=== PATIENT | female | born 1995 | race African-American/Black ===

== ENCOUNTER 2016-09-01 14:46 | Emergency (ER) | payer OTHER, BC ==
[~2016-09-01] VITALS: Ht 162.6 cm; Wt 47.7 kg
[2016-09-01 14:48] VITALS: BP 118/76; PULSE 96; RESP 20; TEMP 98.6; O2SAT 98
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
[2016-09-01] MEDS ORDERED: DIAZEPAM 5 MG TAB PO ONE (18:15)
[2016-09-01] MEDS ORDERED: IBUPROFEN 600 MG TAB PO ONE (18:15)
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
[2016-09-01] MEDS ORDERED: IBUP-232 PO (18:41)
== END 2016-09-01 19:05 | disposition home or self-care (01) ==
LOC: NEPD 14:46
DX: M54.2 Cervicalgia (principal); M54.5 Low back pain; V43.62XA Car passenger injured in collision with other type car in traffic accident, initial encounter
CPT/HCPCS: 72100; 72125; 84703; 99284; L0150

== ENCOUNTER 2017-07-25 12:19 | Emergency (ER) | payer BC ==
[~2017-07-25] VITALS: Ht 162.6 cm; Wt 42.0 kg
[~2017-07-25 12:19] MED LIST: IBUP-232 PO
[2017-07-25 12:22] VITALS: BP 100/62; PULSE 67; RESP 16; TEMP 98.6; O2SAT 100
[2017-07-25] MEDS ORDERED: FLUO1TAB3 PO (12:32)
--- NOTE | 2017-07-25 12:52 | PD ---
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 States it has been there approximately 2 months. Evaluated by [facility] PH[facility]IC[facility] and given a topical antibiotic which has not resulted in resolution. States it has gotten bigger and has become more painful. Denies any nausea vomiting diarrhea or fever. Denies . She is sexually active. One partner without condoms. Denies any history of STD. Denies . Pain is dull and constant 5 out of 10 aggravated with movement relieved with rest. States she has not attempted warm compress. PFSH Past Medical History Depression: Yes Diminished Hearing: No Immunizations Current: Yes Influenza Vaccination: No ?: Not : 0 Social History Alcohol Use: No Tobacco Use: No Substance Use: No Allergies-Medications (Allergen,Severity, Reaction): Coded Allergies: No Known Allergies (Unverified Adverse Reaction, Unknown, 07/25/17) Reported Meds & Prescriptions Reported Meds & Active Scripts Active Hydrocodone-Acetaminophen 5-325 mg Tab 1 Tab PO Q6H PRN Bactrim DS (Sulfamethoxazole-Trimethoprim) 800-160 Mg Tab 1 Tab PO BID Reported Fluoxetine (Fluoxetine HCl) 20 Mg Tab 20 Mg PO DAILY Review of Systems General / Constitutional: No: Fever Eyes: No: Visual changes HENT: No: Headaches Cardiovascular: No: Chest Pain or Discomfort Respiratory: No: Shortness of Breath Gastrointestinal: No: Abdominal Pain Genitourinary: Positive: Pelvic Pain, No: Dysuria Musculoskeletal: No: Pain Skin: No Rash Neurologic: No: Weakness Psychiatric: No: Depression Endocrine: No: Polydipsia Hematologic/Lymphatic: No: Easy Bruising Physical Exam Narrative GENERAL: Well-nourished, well-developed patient. SKIN: Focused skin assessment warm/dry. HEAD: Normocephalic. EYES: No scleral icterus. No injection or drainage. NECK: Supple, trachea midline. No JVD or lymphadenopathy. CARDIOVASCULAR: Regular rate and rhythm without murmurs, gallops, or rubs. RESPIRATORY: Breath sounds equal bilaterally. No accessory muscle use. GASTROINTESTINAL: Abdomen soft, non-tender, nondistended. MUSCULOSKELETAL: No cyanosis, or edema. BACK: Nontender without obvious deformity. No CVA tenderness. Right labial Bartholin's cyst measuring approximately 6 x 4 cm without drainage , fluctuant Data Data Last Documented VS Vital Signs Date Time Temp Pulse Resp B/P (MAP) Pulse Ox O2 Delivery O2 Flow Rate FiO2 07/25/17 13:33 07/25/17 12:22 98.6 67 16 100 Room Air Orders Orders Ed Discharge Order (07/25/17 13:36) MDM Medical Decision Making Medical Screen Exam Complete: Yes Emergency Medical Condition: Yes Differential Diagnosis Labial abscess, labial malignancy, Bartholin's cyst Narrative Course Assessment plan discussed with patient and boyfriend at bedside. Procedures Procedure Narrative After the risks and benefits were discussed the following procedure was performed: INCISION AND DRAINAGE OF CYST: The area was prepped and was sterilely draped. Skin was anesthetized with ethyl chloride. A number 11 blade scalpel was used to make a 0.5 -cm incision across the area of the cyst. There was not significant drainage. The cyst wall was not pierced. Procedure stopped. Bleeding controlled with mini pad. Diagnosis Primary Impression: Bartholin cyst Patient Instructions: General Instructions Additional Instructions: Encouraged a warm compress and sitz bath. Encourage follow-up with [facility]IC[facility]. Return to the emergency room with any onset of new symptoms. Med/Other Pt SpecificInfo: Prescription(s) given Scripts Hydrocodone-Acetaminophen (Hydrocodone-Acetaminophen) 5-325 mg Tab 1 TAB PO Q6H Y for PAIN, #15 TAB 0 Refills Prov: Amari Schmidt MD 07/25/17 Sulfamethoxazole-Trimethoprim (Bactrim DS) 800-160 Mg Tab 1 TAB PO BID for Infection, #20 TAB 0 Refills Prov: Amari Schmidt MD 07/25/17 Disposition: 01 DISCHARGE HOME Condition: Good Amari Schmidt MD July 25, 2017 12:52
[2017-07-25] MEDS ORDERED: BACT800T5 PO (13:16)
[2017-07-25] MEDS ORDERED: HYDR-3516 PO (13:16)
== END 2017-07-25 13:40 | disposition home or self-care (01) ==
LOC: PHED 12:19
DX: N75.0 Cyst of Bartholin's gland (principal)
CPT/HCPCS: 56420

== ENCOUNTER 2017-07-26 23:12 | Emergency (ER) | payer BC ==
[~2017-07-26] VITALS: Ht 162.6 cm; Wt 42.5 kg
[~2017-07-26 23:12] MED LIST changes: +BACT800T5 PO; +FLUO1TAB3 PO; +HYDR-3516 PO; -IBUP-232 PO
[2017-07-26 23:14] VITALS: BP 113/66; PULSE 98; RESP 16; TEMP 99.7; O2SAT 98
[2017-07-26 23:33] LABS: BILIRUBIN, URINE NEG (NEG); BLOOD, URINE NEG (NEG); GLUCOSE,URINE NEG (NEG); KETONE, URINE 40 mg/dL (NEG); NITRITE,URINE NEG (NEG); PH, URINE 7.5 (5.0-8.5); URINE COLOR YELLOW (YELLW/STRAW); URINE LEUKOCYTE ESTERASE TRACE (NEG)
[2017-07-26 23:41] LABS: BACTERIA, URINE FEW /hpf; RBC, URINE 0-3 /hpf (0-3); SQUAMOUS EPITHELIAL CELL URINE > 8 /hpf (0-5)
[2017-07-27] MEDS ORDERED: SODIUM CHLOR 0.9% 1000 ML INJ 1,000 ML IV ONE (01:08)
[2017-07-27] MEDS ORDERED: ONDANSETRON HCL 4 MG/2 ML VIAL IV PUSH ONE (01:15)
[2017-07-27] MEDS ORDERED: PANTOPRAZOLE SODIUM 40 MG VIAL IV PUSH ONE (01:15)
[2017-07-27] MEDS ORDERED: KETOROLAC TROMETHAMINE 30 MG/ML (IVP) VIAL IV PUSH ONE (01:15)
[2017-07-27 01:31] VITALS: PULSE 82; RESP 16; O2SAT 98
[2017-07-27 01:32] LABS: AUTOMATED NEUTROPHIL # 6.5 TH/MM3 (1.8-7.7); BASOPHIL # 0.2 TH/MM3 (0-0.2); BASOPHIL % 2.7 % (0.0-2.0); EOSINOPHIL # 0.2 TH/MM3 (0-0.4); EOSINOPHIL % 2.6 % (0.0-4.0); HEMATOCRIT 33.7 % (35.0-46.0); HEMOGLOBIN 11.4 GM/DL (11.6-15.3); LYMPHOCYTE # 0.5 TH/MM3 (1.0-4.8); MEAN CORPUSCULAR HEMOGLOBIN 28.1 PG (27.0-34.0); MEAN CORPUSCULAR HGB CONC 33.8 % (32.0-36.0); MEAN PLATELET VOLUME 8.3 FL (7.0-11.0); MONO % 6.5 % (0.0-8.0); MONOCYTE # 0.5 TH/MM3 (0-0.9); NEUT % 82.2 % (16.0-70.0); PLATELET COUNT 277 TH/MM3 (150-450); RED BLOOD COUNT 4.05 MIL/MM3 (4.00-5.30); RED CELL DISTRIBUTION WIDTH 13.1 % (11.6-17.2); WHITE BLOOD COUNT 7.9 TH/MM3 (4.0-11.0)
[2017-07-27 01:40] LABS: CALCIUM 9.3 MG/DL (8.5-10.1)
[2017-07-27 01:41] LABS: BICARBONATE 24.7 MEQ/L (21.0-32.0)
[2017-07-27 01:44] LABS: CREATININE 0.94 MG/DL (0.50-1.00)
[2017-07-27 02:21] VITALS: PULSE 95; RESP 16; O2SAT 100
[2017-07-27] MEDS ORDERED: ZOFR4TAB3 SL (02:47)
[2017-07-27 02:48] VITALS: BP 104/62
--- NOTE | 2017-07-27 02:58 | PD ---
HPI Chief Complaint: GI Complaint Time Seen by Provider: 01:08 Travel History International Travel<30 days: No Contact w/Intl Traveler<30days: No Traveled to known affect area: No History of Present Illness HPI 21-year-old female presents to the emergency department by private transportation the care of her significant other for evaluation of headache myalgias arthralgias generalized weakness and nausea vomiting after taking pain medication. Patient was prescribed hydrocodone for pain related to soft tissue swelling to the right labia with history of Bartholin's gland cyst. Patient also given prescription for antibiotic which she has tolerated well. Patient reports headache after vomiting and mild sore throat sore throat is resolving without any further vomiting. Patient has had poor oral intake. Patient denies any abdominal pain. Patient had some dysuria. Patient denies vaginal discharge or vaginal bleeding. Patient had no injury. 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 Patient denies other concerns or complaints. PFSH Past Medical History Narrative Medical Depression dental extraction; no tobacco use no alcohol use no substance use; nursing notes reviewed Depression: Yes Diminished Hearing: No Immunizations Current: Yes Tetanus Vaccination: > 5 Years Influenza Vaccination: No ?: Not LMP: 06/21/2017 : 0 Past Surgical History Oral Surgery: Yes (WISDOM TEETH) Social History Alcohol Use: No Tobacco Use: No Substance Use: No Allergies-Medications (Allergen,Severity, Reaction): Coded Allergies: No Known Allergies (Unverified Adverse Reaction, Unknown, 07/26/17) Reported Meds & Prescriptions Reported Meds & Active Scripts Active Hydrocodone-Acetaminophen 5-325 mg Tab 1 Tab PO Q6H PRN Bactrim DS (Sulfamethoxazole-Trimethoprim) 800-160 Mg Tab 1 Tab PO BID Reported Fluoxetine (Fluoxetine HCl) 20 Mg Tab 20 Mg PO DAILY Review of Systems Except as stated in HPI: all other systems reviewed are Neg Physical Exam Narrative GENERAL: Well-developed well-nourished female in no acute distress no respiratory distress SKIN: Warm and dry. HEAD: Normocephalic. EYES: No scleral icterus. No injection or drainage. NECK: Supple, trachea midline. No JVD or lymphadenopathy. CARDIOVASCULAR: Regular rate and rhythm without murmurs, gallops, or rubs. RESPIRATORY: Breath sounds equal bilaterally. No accessory muscle use. GASTROINTESTINAL: Abdomen soft, non-tender, nondistended. : right labial soft tissue swelling with 1 cm laceration consistent with I&D attempt from yesterday- -no purulent drainage no induration site is not firm or tense. MUSCULOSKELETAL: No cyanosis, or edema. BACK: Nontender without obvious deformity. No CVA tenderness. Data Data Last Documented VS Vital Signs Date Time Temp Pulse Resp B/P (MAP) Pulse Ox O2 Delivery O2 Flow Rate FiO2 07/27/17 02:21 95 16 100 Room Air 07/26/17 23:14 99.7 113/66 (82) Orders Orders Urinalysis - C+S If Indicated (07/26/17 23:20) Ed Urine Pregnancytest Poc (07/26/17 23:20) Complete Blood Count With Diff (07/27/17 01:08) Basic Metabolic Panel (Bmp) (07/27/17 01:08) Sodium Chlor 0.9% 1000 Ml Inj (Ns 1000 M (07/27/17 01:08) Ondansetron Inj (Zofran Inj) (07/27/17 01:15) Pantoprazole Inj (Protonix Inj) (07/27/17 01:15) Ketorolac Inj (Toradol Inj) (07/27/17 01:15) Ed Discharge Order (07/27/17 02:30) Labs Laboratory Tests Test 07/26/17 23:25 07/27/17 01:00 Urine Color YELLOW Urine Turbidity CLOUDY Urine pH 7.5 Urine Specific [place] 1.020 Urine Protein 100 mg/dL Urine Glucose (UA) NEG mg/dL Urine Ketones 40 mg/dL Urine Occult Blood NEG Urine Nitrite NEG Urine Bilirubin NEG Urine Urobilinogen 2.0 MG/DL Urine Leukocyte Esterase TRACE Urine RBC 0-3 /hpf Urine WBC 6-8 /hpf Urine Squamous Epithelial Cells > 8 /hpf Urine Bacteria FEW /hpf Microscopic Urinalysis Comment CULT NOT INDICATED White Blood Count 7.9 TH/MM3 Red Blood Count 4.05 MIL/MM3 Hemoglobin 11.4 GM/DL Hematocrit 33.7 % Mean Corpuscular Volume 83.0 FL Mean Corpuscular Hemoglobin 28.1 PG Mean Corpuscular Hemoglobin Concent 33.8 % Red Cell Distribution Width 13.1 % Platelet Count 277 TH/MM3 Mean Platelet Volume 8.3 FL Neutrophils (%) (Auto) 82.2 % Lymphocytes (%) (Auto) 6.0 % Monocytes (%) (Auto) 6.5 % Eosinophils (%) (Auto) 2.6 % Basophils (%) (Auto) 2.7 % Neutrophils # (Auto) 6.5 TH/MM3 Lymphocytes # (Auto) 0.5 TH/MM3 Monocytes # (Auto) 0.5 TH/MM3 Eosinophils # (Auto) 0.2 TH/MM3 Basophils # (Auto) 0.2 TH/MM3 CBC Comment DIFF FINAL Differential Comment Blood Urea Nitrogen 14 MG/DL Creatinine 0.94 MG/DL Random Glucose 83 MG/DL Calcium Level 9.3 MG/DL Sodium Level 138 MEQ/L Potassium Level 4.0 MEQ/L Chloride Level 107 MEQ/L Carbon Dioxide Level 24.7 MEQ/L Anion Gap 6 MEQ/L Estimat Glomerular Filtration Rate 92 ML/MIN MDM Medical Decision Making Medical Screen Exam Complete: Yes Emergency Medical Condition: Yes Medical Record Reviewed: Yes Differential Diagnosis Adverse medication reaction, UTI, viral syndrome, dehydration, electrolyte disturbance, mass, abscess Narrative Course Patient notes vomiting after attempting to take pain medication able to tolerate medication as sensitive to narcotics. Patient with poor oral intake after taking pain medication. 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 Patient apparently developed nausea vomiting with narcotic medication but not allergic to this medication given prescription for Zofran to help tolerate side effects of narcotic medication and encouraged to take half dose. Diagnosis Primary Impression: Adverse effects of medication Referrals: Primary Care Physician 3 days Patient Instructions: General Instructions Additional Instructions: Increase fluid hydration Follow clear liquid diet for next 12-24 hours advance diet as tolerated bland/ brat diet and regular diet avoiding fried and fatty foods Take Zofran as prescribed as needed for nausea and/or vomiting Complete course of antibiotic as prescribed Follow-up with your primary care provider as scheduled and call for appointment with BRAIDER SETTER as previously instructed Take as tolerated ibuprofen/Advil/Motrin 400 mg as often as every 6 hours for pain associated inflammation or for fever 100.4F or greater May take acetaminophen/Tylenol every 4-6 hours as needed for fever 100.4F or greater Return to the emergency department for any concerns or change in condition Med/Other Pt SpecificInfo: Prescription(s) given Scripts Ondansetron Odt (Zofran Odt) 4 Mg Tab 4 MG SL Q6HR Y for Nausea/Vomiting, #10 TAB 0 Refills Prov: Joy Freire MD 07/27/17 Disposition: DISCHARGE HOME Condition: Stable Joy Freire MD July 27, 2017 02:58
== END 2017-07-27 03:12 | disposition home or self-care (01) ==
LOC: PHED 23:12
DX: R51 Headache (principal); T40.2X5A Adverse effect of other opioids, initial encounter; J02.9 Acute pharyngitis, unspecified
CPT/HCPCS: 80048; 81001; 84703; 85025; 96361; 96374; 96375; 99284; C9113; J1885; J2405; J7030

== ENCOUNTER 2017-08-07 12:07 | Emergency (ER) | payer BC ==
[~2017-08-07] VITALS: Ht 162.6 cm; Wt 42.0 kg
[~2017-08-07 12:07] MED LIST changes: +ZOFR4TAB3 SL
[2017-08-07 12:11] VITALS: BP 98/56; PULSE 90; RESP 16; TEMP 98.7; O2SAT 98
--- NOTE | 2017-08-07 12:53 | PD ---
HPI Chief Complaint: GI Complaint Time Seen by Provider: 12:52 Travel History International Travel<30 days: No Contact w/Intl Traveler<30days: No Traveled to known affect area: No History of Present Illness HPI Patient comes in complaining of having left sided abdominal pain, cramping nature, intermittent, 5 out of 10, relieved with bowel movement. However she noted that her bowel movement was well formed not watery but had some red streaks around edges of it. Also denies being on any anticoagulants, and also states she did not strain nor feel any sharp rectal pain while she was having a BM... Patient denies any associated nausea, vomiting, chest pain, back pain, flank pain, hematuria/urgency/frequency/dysuria, cough/sore throat/runny nose Follows up with Dr. Dowd Patient denies any drug allergies Past medical history significant only for wisdom teeth surgery and right foot orthopedic surgery, patient has a history of anorexia, depression, anemia, Last menstrual period July 30, 2017, PFSH Past Medical History Depression: Yes Diminished Hearing: No Immunizations Current: Yes ?: Not LMP: 07/30/17 : 0 Past Surgical History Oral Surgery: Yes (WISDOM TEETH) Social History Alcohol Use: No Tobacco Use: No Substance Use: No Allergies-Medications (Allergen,Severity, Reaction): Coded Allergies: No Known Allergies (Unverified Adverse Reaction, Unknown, 08/07/17) Reported Meds & Prescriptions Reported Meds & Active Scripts Active Zofran Odt (Ondansetron Odt) 4 Mg Tab 4 Mg SL Q6HR PRN Hydrocodone-Acetaminophen 5-325 mg Tab 1 Tab PO Q6H PRN Bactrim DS (Sulfamethoxazole-Trimethoprim) 800-160 Mg Tab 1 Tab PO BID Reported Fluoxetine (Fluoxetine HCl) 20 Mg Tab 20 Mg PO DAILY Review of Systems General / Constitutional: No: Fever Eyes: No: Visual changes HENT: No: Headaches Cardiovascular: No: Chest Pain or Discomfort Respiratory: No: Shortness of Breath Gastrointestinal: Positive: Abdominal Pain, Hematochezia Genitourinary: No: Dysuria Musculoskeletal: No: Pain Skin: No Rash Neurologic: No: Weakness Psychiatric: No: Depression Endocrine: No: Polydipsia Hematologic/Lymphatic: No: Easy Bruising Physical Exam Narrative GENERAL: SKIN: Warm and dry. HEAD: Atraumatic. Normocephalic. EYES: Pupils equal and round. No scleral icterus. No injection or drainage. ENT: No nasal bleeding or discharge. Mucous membranes pink and moist. NECK: Trachea midline. No JVD. CARDIOVASCULAR: Regular rate and rhythm. RESPIRATORY: No accessory muscle use. Clear to auscultation. Breath sounds equal bilaterally. GASTROINTESTINAL: Abdomen soft, non-tender, nondistended. RN at bedside during examination did not reveal any evidence of any external hemorrhoids nor any anal fissure MUSCULOSKELETAL: Extremities without clubbing, cyanosis, or edema. No obvious deformities. NEUROLOGICAL: Awake and alert. No obvious cranial nerve deficits. Motor grossly within normal limits. Five out of 5 muscle strength in the arms and legs. Normal speech. PSYCHIATRIC: Appropriate mood and affect; insight and judgment normal. Data Data Last Documented VS Vital Signs Date Time Temp Pulse Resp B/P (MAP) Pulse Ox O2 Delivery O2 Flow Rate FiO2 08/07/17 14:06 98 08/07/17 12:11 98.7 90 16 98/56 (70) Orders Orders Urinalysis - C+S If Indicated (08/07/17 12:12) Ed Urine Pregnancytest Poc (08/07/17 12:12) Ct Abd/Pel W Iv Contrast(Rout) (08/07/17 13:40) Complete Blood Count With Diff (08/07/17 13:41) Comprehensive Metabolic Panel (08/07/17 13:41) Lipase (08/07/17 13:41) Iv Access Insert/Monitor (08/07/17 13:41) Ecg Monitoring (08/07/17 13:41) Oximetry (08/07/17 13:41) NPO (08/07/17 13:41) Sodium Chloride 0.9% Flush (Ns Flush) (08/07/17 13:45) Labs Laboratory Tests Test 08/07/17 13:47 08/07/17 13:57 Urine Collection Type CLEAN CATCH Urine Color YELLOW Urine Turbidity CLEAR Urine pH 6.0 Urine Specific [place] 1.015 Urine Protein 30 mg/dL Urine Glucose (UA) NEG mg/dL Urine Ketones TRACE mg/dL Urine Occult Blood NEG Urine Nitrite NEG Urine Bilirubin NEG Urine Urobilinogen 0.2 MG/DL Urine Leukocyte Esterase NEG Urine RBC 0-3 /hpf Urine WBC 3-5 /hpf Urine Squamous Epithelial Cells > 8 /hpf Urine Renal Epithelial Cells /hpf Urine Mucus FEW /lpf Microscopic Urinalysis Comment CULT NOT INDICATED White Blood Count 5.9 TH/MM3 Red Blood Count 4.21 MIL/MM3 Hemoglobin 11.7 GM/DL Hematocrit 34.3 % Mean Corpuscular Volume 81.5 FL Mean Corpuscular Hemoglobin 27.8 PG Mean Corpuscular Hemoglobin Concent 34.1 % Red Cell Distribution Width 13.4 % Platelet Count 450 TH/MM3 Mean Platelet Volume 8.7 FL CBC Comment AUTO DIFF Blood Urea Nitrogen 13 MG/DL Creatinine 0.84 MG/DL Random Glucose 71 MG/DL Total Protein 7.4 GM/DL Albumin 3.9 GM/DL Calcium Level 9.2 MG/DL Alkaline Phosphatase 58 U/L Aspartate Amino Transf (AST/SGOT) 20 U/L Alanine Aminotransferase (ALT/SGPT) 17 U/L Total Bilirubin 0.3 MG/DL Sodium Level 142 MEQ/L Potassium Level 3.8 MEQ/L Chloride Level 109 MEQ/L Carbon Dioxide Level 26.0 MEQ/L Anion Gap 7 MEQ/L Estimat Glomerular Filtration Rate 105 ML/MIN Lipase 69 U/L [facility] Medical Decision Making Medical Screen Exam Complete: Yes Emergency Medical Condition: Yes Medical Record Reviewed: Yes Differential Diagnosis Anal fissure versus external hemorrhoid versus internal hemorrhoid versus colitis versus diverticulitis Narrative Course No leukocytosis, no anemia, no left shift UA is consistent with contaminated sample, without any evidence for UTI Electrolytes are all within normal limits, normal kidney liver and pancreatic functions. Currently patient is signed out pending CAT scan result. Diagnosis Primary Impression: Bright red blood per rectum Disposition: DISCHARGE HOME Condition: Stable Silvio John MD Aug 07, 2017 12:53
[2017-08-07] MEDS ORDERED: SODIUM CHLORIDE 0.9% FLUSH 10 ML FLUSH IV FLUSH PRN (13:45)
[2017-08-07 14:06] VITALS: O2SAT 98
[2017-08-07 14:08] LABS: BILIRUBIN, URINE NEG (NEG); BLOOD, URINE NEG (NEG); GLUCOSE,URINE NEG (NEG); KETONE, URINE TRACE mg/dL (NEG); NITRITE,URINE NEG (NEG); URINE COLOR YELLOW (YELLW/STRAW); URINE LEUKOCYTE ESTERASE NEG (NEG)
[2017-08-07 14:16] LABS: MUCUS URINE FEW /lpf (OCC)
[2017-08-07 14:17] LABS: CHLORIDE 109 MEQ/L (98-107); HEMATOCRIT 34.3 % (35.0-46.0); HEMOGLOBIN 11.7 GM/DL (11.6-15.3); MEAN CELL VOLUME 81.5 FL (80.0-100.0); MEAN CORPUSCULAR HEMOGLOBIN 27.8 PG (27.0-34.0); MEAN CORPUSCULAR HGB CONC 34.1 % (32.0-36.0); MEAN PLATELET VOLUME 8.7 FL (7.0-11.0); PLATELET COUNT 450 TH/MM3 (150-450); RED BLOOD COUNT 4.21 MIL/MM3 (4.00-5.30); RED CELL DISTRIBUTION WIDTH 13.4 % (11.6-17.2); SODIUM (NA) 142 MEQ/L (136-145); WHITE BLOOD COUNT 5.9 TH/MM3 (4.0-11.0)
[2017-08-07 14:17] LABS: RBC, URINE 0-3 /hpf (0-3); SQUAMOUS EPITHELIAL CELL URINE > 8 /hpf (0-5)
[2017-08-07 14:20] LABS: CALCIUM 9.2 MG/DL (8.5-10.1)
[2017-08-07 14:21] LABS: ALBUMIN 3.9 GM/DL (3.4-5.0); BLOOD UREA NITROGEN 13 MG/DL (7-18); GLUCOSE,RANDOM 71 MG/DL (74-106)
[2017-08-07 14:24] LABS: ALT (GPT) 17 U/L (9-42); AST (GOT) 20 U/L (16-38); CREATININE 0.84 MG/DL (0.50-1.00); GLOMERULAR FILTRATION RATE 105 ML/MIN (>89)
[2017-08-07 14:25] LABS: TOTAL BILIRUBIN ADULT 0.3 MG/DL (0.2-1.0); TOTAL PROTEIN 7.4 GM/DL (6.4-8.2)
[2017-08-07 14:27] LABS: ALKALINE PHOSPHATASE 58 U/L (45-117)
[2017-08-07 14:44] LABS: LYMPHOCYTES 40 % (9-44); MONOCYTES 7 % (0-8); NEUTROPHIL # MANUAL DIFF 3.1 TH/MM3 (1.8-7.7); POLYS (SEG NEUTROPHILS) 53 % (16-70)
[2017-08-07] MEDS ORDERED: IOHEXOL 350 MG/ML 10 ML VIAL (for RAD DIAG) IVCONTRAST ONE (15:17)
--- NOTE | 2017-08-07 15:29 | RADRPT ---
EXAM DATE: 08/07/2017 3:18 PM EDT AGE/SEX: 21 years / Female INDICATIONS: Left lower quadrant pain. Bloody stool. CLINICAL DATA: This is the patient's initial encounter. Patient reports that signs and symptoms have been present for 1 day and indicates a pain score of 5/10. MEDICAL/SURGICAL HISTORY: None. None. ORAL CONTRAST: No oral contrast ingested. RADIATION DOSE: 4.45 CTDI (mGy) COMPARISON: No prior [place] exams available for comparison. TECHNIQUE: Multiple contiguous axial images were obtained through the abdomen and pelvis following b olus infusion of 75 ml Omnipaque 350 (iohexol) nonionic water-soluble contrast as a single exam dos e. No oral contrast ingested. Using automated exposure control and adjustment of the mA and/or kV ac cording to patient size, the radiation dose was kept as low as reasonably achievable to obtain optima l diagnostic quality images. FINDINGS: Lower Lungs: The visualized lower lungs are clear. Liver: The liver has a homogeneous density without space-occupying lesion. There is no dilation of th e biliary tree. Spleen: Homogeneous density without enlargement. Pancreas: Unremarkable without mass or calcification. Kidneys: Normal in size and shape. No evidence of mass or hydronephrosis. Adrenal Glands: Unremarkable. Aorta: The aorta and proximal iliac vessels are grossly unremarkable without aneurysmal dilation. Bowel/Mesentery: No oral contrast was given limiting the sensitivity of examination. There is poor de lineation of the bowel loops with minimal mesenteric fat resulting in suboptimal visualization. There are multiple loops of nondilated air-containing small bowel. Gas and stool is noted segmental colon. There is no evidence of free air Abdominal Wall: Intact. Retroperitoneum: No evidence of adenopathy in the retrocrural, para-aortic, or deep pelvic regions. Bladder: Contours are smooth. Reproductive Organs: No abnormal masses or calcifications seen. Inguinal: The inguinal region is unremarkable without evidence of adenopathy. Bony Structures: Unremarkable. CONCLUSION: 1. Nonobstructive bowel gas pattern. No oral contrast was given limiting the sensitivity. There is p oor delineation of the bowel loops with minimal mesenteric fat resulting in suboptimal visualization. 2. The remainder of the study is unremarkable. Electronically signed by: Hakeem Melendez MD 08/07/2017 3:27 PM EDT
[2017-08-07 15:47] VITALS: BP 97/66; PULSE 71; RESP 16; O2SAT 100
--- NOTE | 2017-08-07 15:47 | PD ---
Data Data Last Documented VS Vital Signs Date Time Temp Pulse Resp B/P (MAP) Pulse Ox O2 Delivery O2 Flow Rate FiO2 08/07/17 16:31 08/07/17 15:47 71 16 100 Room Air 08/07/17 12:11 98.7 Orders Orders Urinalysis - C+S If Indicated (08/07/17 12:12) Ed Urine Pregnancytest Poc (08/07/17 12:12) Ct Abd/Pel W Iv Contrast(Rout) (08/07/17 13:40) Complete Blood Count With Diff (08/07/17 13:41) Comprehensive Metabolic Panel (08/07/17 13:41) Lipase (08/07/17 13:41) Iv Access Insert/Monitor (08/07/17 13:41) Ecg Monitoring (08/07/17 13:41) Oximetry (08/07/17 13:41) NPO (08/07/17 13:41) Sodium Chloride 0.9% Flush (Ns Flush) (08/07/17 13:45) Iohexol 350 Inj (Omnipaque 350 Inj) (08/07/17 15:17) Ed Discharge Order (08/07/17 16:05) Labs Laboratory Tests Test 08/07/17 13:47 08/07/17 13:57 Urine Collection Type CLEAN CATCH Urine Color YELLOW Urine Turbidity CLEAR Urine pH 6.0 Urine Specific [place] 1.015 Urine Protein 30 mg/dL Urine Glucose (UA) NEG mg/dL Urine Ketones TRACE mg/dL Urine Occult Blood NEG Urine Nitrite NEG Urine Bilirubin NEG Urine Urobilinogen 0.2 MG/DL Urine Leukocyte Esterase NEG Urine RBC 0-3 /hpf Urine WBC 3-5 /hpf Urine Squamous Epithelial Cells > 8 /hpf Urine Renal Epithelial Cells /hpf Urine Mucus FEW /lpf Microscopic Urinalysis Comment CULT NOT INDICATED White Blood Count 5.9 TH/MM3 Red Blood Count 4.21 MIL/MM3 Hemoglobin 11.7 GM/DL Hematocrit 34.3 % Mean Corpuscular Volume 81.5 FL Mean Corpuscular Hemoglobin 27.8 PG Mean Corpuscular Hemoglobin Concent 34.1 % Red Cell Distribution Width 13.4 % Platelet Count 450 TH/MM3 Mean Platelet Volume 8.7 FL CBC Comment AUTO DIFF Differential Total Cells Counted 100 Neutrophils % (Manual) 53 % Lymphocytes % 40 % Monocytes % 7 % Neutrophils # (Manual) 3.1 TH/MM3 Differential Comment FINAL DIFF MANUAL Platelet Estimate NORMAL Platelet Morphology Comment NORMAL Blood Urea Nitrogen 13 MG/DL Creatinine 0.84 MG/DL Random Glucose 71 MG/DL Total Protein 7.4 GM/DL Albumin 3.9 GM/DL Calcium Level 9.2 MG/DL Alkaline Phosphatase 58 U/L Aspartate Amino Transf (AST/SGOT) 20 U/L Alanine Aminotransferase (ALT/SGPT) 17 U/L Total Bilirubin 0.3 MG/DL Sodium Level 142 MEQ/L Potassium Level 3.8 MEQ/L Chloride Level 109 MEQ/L Carbon Dioxide Level 26.0 MEQ/L Anion Gap 7 MEQ/L Estimat Glomerular Filtration Rate 105 ML/MIN Lipase 69 U/L MDM Supervised Visit with MULU: No Narrative Course Patient CARE assume from Dr. John at 1500, this is a 21-year-old female otherwise healthy, she appears well. Abdomen benign. CT abdomen unremarkable, Last 24 hours Impressions Abdomen/Pelvis CT 08/07/17 1340 Signed Impressions: CONCLUSION: 1. Nonobstructive bowel gas pattern. No oral contrast was given limiting the s ensitivity. There is poor delineation of the bowel loops with minimal mesenteri c fat resulting in suboptimal visualization. 2. The remainder of the study is unremarkable. Patient's hemoglobin is actually better than a few weeks ago and was tested here , she appears well in obvious distress, discussed possible constipation as a cause of her blood streaking in her formed stool [employer] MiraLAX, follow-up with the transport truck driver or primary care physician discuss return to ED criteria. She is stable for discharge is no indication further workup this patient at this time Diagnosis Primary Impression: Bright red blood per rectum Referrals: Randi Granda MD Additional Instruction: miralax, 1 capful mixed with juice or water daily fpt one week. Disposition: 01 DISCHARGE HOME Condition: Stable Viktor Aguilera MD Aug 07, 2017 15:47
== END 2017-08-07 16:32 | disposition home or self-care (01) ==
LOC: PHED 12:07
DX: K92.1 Melena (principal); R10.32 Left lower quadrant pain; F32.9 Major depressive disorder, single episode, unspecified
CPT/HCPCS: 74177; 80053; 81001; 83690; 84703; 85007; 85027; 99284; Q9967

== ENCOUNTER → 2017-08-11 | Day surgery (SDC) | payer BC ==
--- NOTE | 2017-08-10 09:33 | MH ---
cc: Junior Dolan MD DATE OF ADMISSION: 08/11/2017 REASON FOR ADMISSION: This patient is being admitted for marsupialization of Bartholin abscess. HISTORY OF PRESENT ILLNESS: This patient is a 21-year-old black female. She is 0. She is being admitted to [facility] for marsupialization of Bartholin abscess. The patient was recently seen in the office. 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 We discussed the different modes of therapy, which included marsupialization. PAST MEDICAL HISTORY: Significant for mild depressive disorder, presently on Fluoxetine. SOCIAL HISTORY: She is a nonsmoker, nondrinker. ALLERGIES: SHE HAS NO KNOWN ALLERGIES TO MEDICATION. PAST SURGICAL HISTORY: Noncontributory. REVIEW OF SYSTEMS: Noncontributory. PHYSICAL EXAMINATION: GENERAL: The patient was seen well-developed, well-nourished, no acute distress. VITAL SIGNS: Stable. HEENT: Negative. CHEST: Clear to auscultation. CARDIOVASCULAR: Revealed regular rate. ABDOMEN: Soft. Bowel sounds are positive. PELVIC: External genitalia reveals a large Bartholin abscess, which had distorted the normal anatomy significantly. The uterus is normal size. There was no adnexal masses. EXTREMITIES: No cyanosis, clubbing or edema. NEUROPSYCHIATRIC: Oriented x 3. No gross neurocranial deficit. IMPRESSION ON ADMISSION: Large Bartholin abscess. PLAN: Marsupialization. Junior Dolan MD JSG/TL , 09:05 AM , 09:31 AM
[~2017-08-11] MED LIST changes: +BACITRACIN TOP OINT 15 GM TUBE ONE; +BUPIVACAINE/EPINEPHRINE 0.5% PF 10 ML VIAL ONE; +KETOROLAC TROMETHAMINE 30 MG/ML (IVP) VIAL IV PUSH ONE; +LACTATED RINGER'S 1000 ML INJ 1,000 ML ONE; +MIDAZOLAM HCL 2 MG/2 ML VIAL ONE; +MORPHINE SULFATE 4 MG/ML INJ ONE; +ONDANSETRON HCL 4 MG/2 ML VIAL IV PUSH ONE; +ONDANSETRON HCL 4 MG/2 ML VIAL IV PUSH PRN; +PROPOFOL 200 MG/20 ML AMP IV ONE; +ceFAZolin 2 GM PREMIX 50 ML ONE; +oxyCODONE/ACETAMINOPHEN 5 MG/325 MG TAB PO PRN
--- NOTE | 2017-08-11 09:13 | MP ---
cc: Junior Dolan MD DATE OF OPERATION: 08/11/2017 DATE OF PROCEDURE: 08/11/2017 PREOPERATIVE DIAGNOSIS: Right Bartholin's abscess. POSTOPERATIVE DIAGNOSIS: Right Bartholin's abscess. PROCEDURE PERFORMED: Marsupialization of the abscess. SURGEON: Junior Dolan MD ANESTHESIA: General. ESTIMATED BLOOD LOSS: Minimal. COMPLICATIONS: None. FINDINGS: None. CORPORATE ANALYST: None. DESCRIPTION OF PROCEDURE: The patient was prepped and draped in dorsal lithotomy position. Marcaine solution was used to infiltrate the area of the abscess and then an elliptical excision was made using a scalpel blade and a portion of the vulva was removed above the abscess. Next, the abscess was shelled out around the edges and then using the ____, an elliptical excision was made into the abscess wall. The abscess was drained and then using 3-0 Vicryl, the abscess wall and the vulva was hemostased in a running locking suture around the cut surface. Good hemostasis was noted. Tenaculum and speculum were removed and the patient returned to recovery room in stable condition. Junior Dolan MD JSG/KD , 08:50 AM , 09:13 AM
== END | disposition home or self-care (01) ==
LOC: ESDC 06:36
PROVIDERS: ATTEND Obstetrics & Gynecology
DX: N75.1 Abscess of Bartholin's gland (principal)
CPT/HCPCS: 00940; 56440; 88304; 88305; J0690; J1885; J2250; J2270; J2405; J3010; J7120